=== PATIENT | female | born 1955 | race Caucasian/White ===

== ENCOUNTER 2018-12-06 18:00 | Emergency (ER) | payer SELFPAY ==
[~2018-12-06] VITALS: Ht 157.5 cm; Wt 82.6 kg
[2018-12-06 18:12] VITALS: BP 153/93
--- NOTE | 2018-12-06 18:19 | NUR ---
PT TRIAGED AND SENT TO ER LOBBY, URINE SPECIMEN OBTAINED.
--- NOTE | 2018-12-06 18:43 | NUR ---
PT TO ER BED 09
--- NOTE | 2018-12-06 18:55 | NUR ---
PT BIB DAUGHTER C/O DIZZINESS AND VOMTTING SINCE THIS MORNING 3 TIMES. UMBILICAL ABD PAIN 5/10 CRAMPING, NONRADIATING. LBM TODAY. BS 97. STATES THESE ARE SIMILAR SYMPTOMS TO THE LAST TIME SHE HAD A UTI. HX---HTN, DM, KIDNEY STONES, UTI MEDS--LOSARTAN, PIOGLITAZONE
--- NOTE | 2018-12-06 19:21 | NUR ---
REPORT GIVEN TO SEMICONDUCTOR DEVELOPMENT TECHNICIAN RNBRANDIN. PATIENT STABLE AT TIME OF TRANSFER OF CARE.
[2018-12-06] MEDS ORDERED: MECLIZINE 25 MG TAB PO ONE (19:45)
--- NOTE | 2018-12-06 19:59 | NUR ---
PT TAKEN TO CT
--- NOTE | 2018-12-06 20:12 | NUR ---
PT RETURN FROM CT
[2018-12-06 20:25] VITALS: BP 153/93
== END 2018-12-06 20:25 | disposition home or self-care (01) ==
LOC: MED 18:00
DX: R42 Dizziness and giddiness (principal); R10.817 Generalized abdominal tenderness; R11.2 Nausea with vomiting, unspecified; Z87.442 Personal history of urinary calculi
CPT/HCPCS: 70450; 99284; J8597

== ENCOUNTER 2020-11-17 11:19 | Emergency (ER) | payer OTHER, BC ==
[~2020-11-17] VITALS: Ht 154.9 cm; Wt 82.6 kg
[2020-11-17 11:26] VITALS: BP 154/104
[2020-11-17] MEDS ORDERED: ACETAMINOPHEN 325 MG TAB PO ONE (12:00)
[2020-11-17 13:39] VITALS: BP 154/104
== END 2020-11-17 13:39 | disposition home or self-care (01) ==
LOC: MED 11:19
DX: S30.0XXA Contusion of lower back and pelvis, initial encounter (principal); S09.90XA Unspecified injury of head, initial encounter; M54.2 Cervicalgia; E11.9 Type 2 diabetes mellitus without complications; I10 Essential (primary) hypertension; Z90.49 Acquired absence of other specified parts of digestive tract; W01.198A Fall on same level from slipping, tripping and stumbling with subsequent striking against other object, initial encounter; Y93.89 Activity, other specified; Y92.89 Other specified places as the place of occurrence of the external cause; Y99.8 Other external cause status
CPT/HCPCS: 70450; 72100; 72220; 99284